=== PATIENT | male | born 1955 | race Caucasian/White ===

== ENCOUNTER 2020-06-06 12:57 | Emergency (ER) | payer OTHER, SELFPAY ==
[~2020-06-06 12:57] MED LIST: ASPIRIN EC81 MG PO; IBUPROFEN800 MG PO; JARDIANCE10 MG PO; LEVEMIR VI100 UNITS/ SC; MICRONASE5 MG PO; NORCO 5-325 TA1 EACH PO; PRILOSEC20 MG PO; PRINIVIL10 MG PO; ZOCOR10 MG PO
[2020-06-06 14:11] LABS: CORONAVIRUS 2019 SARS-COV-2 NEGATIVE (NEGATIVE); INFLUENZA A NAA NEGATIVE (NEGATIVE)
[2020-06-06 14:20] LABS: BASOPHIL 0.5 % (0-2); EOSINOPHIL 4.9 % (0-5); HCT 46.4 % (42.0-52.0); HGB 15.4 g/dl (13.2-18.0); LYMPHOCYTE 20.4 % (15-48); MCH 30.7 pg (25.0-31.0); MCHC 33.2 g/dL (32.0-36.0); MCV 92.4 fL (78.0-100.0); MPV 10.6 fL (6.0-9.5); NEUTROPHIL 65.8 % (41-80); NRBC 0; PLT 204 K/uL (150-400); RBC 5.02 M/uL (4.70-6.00); RDW 12.3 % (11.5-14.0); WBC 7.4 K/uL (4.0-10.5)
[2020-06-06 14:33] LABS: ALBUMIN 3.6 g/dL (3.4-5.0); BILIRUBIN - TOTAL 0.5 mg/dL (0.2-1.0); BUN/CREAT RATIO (CALC) 27.2 RATIO; CREATININE 0.81 mg/dL (0.67-1.17); MAGNESIUM 1.9 mg/dL (1.8-2.4); POTASSIUM 4.3 mmol/L (3.5-5.1); TOTAL PROTEIN 6.6 g/dL (6.4-8.2)
[2020-06-06 14:55] LABS: BILIRUBIN NEGATIVE (NEGATIVE); BLOOD NEGATIVE Ery/uL (NEGATIVE); CLARITY CLEAR (CLEAR); COLOR YELLOW (YELLOW); GLUCOSE (U) 3+ mg/dL (NORMAL); LEUKOCYTES NEGATIVE Leu/uL (NEGATIVE); NITRITE NEGATIVE (NEGATIVE); PROTEIN NEGATIVE (NEGATIVE); UROBILINOGEN 0.2 mg/dL (0.2-1.0)
[2020-06-06] MEDS ORDERED: LEVAQUIN750 MG PO (15:40)
== END 2020-06-06 16:43 | disposition home or self-care (01) ==
LOC: FER 12:57
PROVIDERS: Emergency Medicine; Nurse Practitioner Family
DX: J06.9 Acute upper respiratory infection, unspecified (principal); E11.9 Type 2 diabetes mellitus without complications; I10 Essential (primary) hypertension; Z88.0 Allergy status to penicillin; Z88.5 Allergy status to narcotic agent; Z79.899 Other long term (current) drug therapy; Z79.4 Long term (current) use of insulin; Z20.822 Contact with and (suspected) exposure to COVID-19
CPT/HCPCS: 36415; 71045; 80053; 81003; 83735; 84484; 85025; 93005; J7030; U0002

== ENCOUNTER 2021-03-12 12:51 | Emergency (ER) | payer OTHER ==
[~2021-03-12 12:51] MED LIST changes: +LEVAQUIN750 MG PO
[2021-03-12 13:41] LABS: BASOPHIL 0.7 % (0-2); EOSINOPHIL 0.4 % (0-7); HCT 43.8 % (42.0-52.0); HGB 14.9 g/dl (13.2-18.0); LYMPHOCYTE 40.9 % (15-48); MCH 30.5 pg (25.0-31.0); MCV 89.6 fL (78.0-100.0); MONOCYTE 17.9 % (0-12); MPV 10.7 fL (6.0-9.5); NEUTROPHIL 40.1 % (41-80); NRBC 0; PLT 159 K/uL (150-400); RBC 4.89 M/uL (4.70-6.00); RDW 12.5 % (11.5-14.0); WBC 2.7 K/uL (4.0-10.5)
[2021-03-12 14:07] LABS: ALBUMIN 3.7 g/dL (3.4-5.0); BILIRUBIN - TOTAL 0.5 mg/dL (0.2-1.0); BUN/CREAT RATIO (CALC) 23.5 RATIO; CREATININE 0.98 mg/dL (0.67-1.17); GLOBULIN (CALCULATION) 2.9 g/dL; POTASSIUM 3.9 mmol/L (3.5-5.1); TOTAL PROTEIN 6.6 g/dL (6.4-8.2)
[2021-03-12] MEDS ORDERED: ZOFRAN4 M1 PO (16:30)
[2021-03-12] MEDS ORDERED: VENTOLIN HFA18 GM INH (16:30)
== END 2021-03-12 19:12 | disposition home or self-care (01) ==
LOC: FER 12:51
PROVIDERS: Emergency Medicine
DX: U07.1 COVID-19 (principal); I10 Essential (primary) hypertension; E11.9 Type 2 diabetes mellitus without complications; Z23 Encounter for immunization; Z88.0 Allergy status to penicillin; Z88.2 Allergy status to sulfonamides; Z88.5 Allergy status to narcotic agent
CPT/HCPCS: 36415; 71045; 80053; 84484; 85025; 85379; 93005; J1200; J1885; J2405; J7030; M0243; Q0244; U0002